=== PATIENT | female | born 1990 | race Caucasian/White ===

== ENCOUNTER 2021-09-02 09:48 | Emergency (ER) | payer SELFPAY ==
[~2021-09-02] VITALS: Ht 149.9 cm; Wt 56.7 kg
--- NOTE | 2021-09-02 10:35 | NUR ---
Patient discharged to home in stable condition. Written and verbal after care instructions given. Patient verbalizes understanding of instructions. Stressed follow up or return to ER for worsening s/s.pt walks i nsteady gait. no sign of distress.
== END 2021-09-02 10:38 | disposition home or self-care (01) ==
LOC: ER 09:48
DX: S20.219A Contusion of unspecified front wall of thorax, initial encounter (principal); S09.90XA Unspecified injury of head, initial encounter; V49.40XA Driver injured in collision with unspecified motor vehicles in traffic accident, initial encounter; Y92.410 Unspecified street and highway as the place of occurrence of the external cause; Z88.6 Allergy status to analgesic agent; Z88.0 Allergy status to penicillin; R51.9 Headache, unspecified
CPT/HCPCS: 70450; 71045; 93005; A4663